=== PATIENT | male | born 1980 | race African-American/Black ===

== ENCOUNTER 2017-07-02 11:32 | Emergency (ER) | payer SELFPAY ==
[2017-07-02 13:44] LABS: RAPID STREP SCREEN REAGENT QC YELLOW (YELLOW)
--- NOTE | 2017-07-02 13:54 | ED Physician Documentation ---
PD HPI URI - Stated complaint Stated Complaint: SORE THOAT, WHEEZING, COUGH - Chief complaint Chief Complaint: Heent - History obtained from History obtained from: Patient - History of Present Illness Timing - onset: Other (36-year-old gentleman with very mild asthma presents with 1 day of coughing, nonproductive with mild wheezing, sore throat, runny nose, and sneezing. He has chills but no measured fevers. There is no shortness of breath.) Review of Systems Constitutional: reports: Chills, Fatigue. denies: Fever Nose: reports: Rhinorrhea / runny nose, Congestion. denies: Sinus pressure / pain Throat: reports: Sore throat Respiratory: reports: Dyspnea, Wheezing. denies: Cough GI: denies: Abdominal Pain PD PAST MEDICAL HISTORY - Present Medications Home Medications: Ambulatory Orders Medication Instructions Recorded Confirmed Albuterol Sulfate [Proventil Hfa 1 - 2 puffs IH Q4H PRN #1 07/02/17 Inhaler] hfa.aer.ad Guaifenesin/Pseudoephedrne HCl 1 each PO BID PRN #20 tab.er.12h 07/02/17 [Mucinex D ER 600-60 mg Tablet] Ibuprofen [Motrin] 800 mg PO Q8H PRN #30 tablet 07/02/17 guaiFENesin/CODEINE [Robitussin AC] 5 - 10 ml PO Q6H PRN #120 ml 07/02/17 predniSONE [Deltasone] 60 mg PO DAILY 5 Days 07/02/17 - Allergies Allergies/Adverse Reactions: Allergies Allergy/AdvReac Type Severity Reaction Status Date / Time No Known Drug Allergies Allergy Verified 07/02/17 11:55 PD ED PE NORMAL - Vitals Vital signs reviewed: Yes - General General: Alert and oriented X 3, No acute distress - HEENT HEENT: PERRL, EOMI, Ears normal, Pharynx benign - Neck Neck: Supple, no meningeal sign, No bony TTP, No adenopathy - Cardiac Cardiac: RRR, No murmur - Respiratory Respiratory: No respiratory distress, Other (Mild diffuse wheezes with good air movement and no focal findings) - Abdomen Abdomen: Non tender - Neuro Neuro: Alert and oriented X 3, Normal speech - Psych Psych: Normal mood, Normal affect Results - Vitals Vitals: Vital Signs - 24 hr 07/02/17 07/02/17 11:51 14:01 Temperature 36.9 C 37.3 C Heart Rate 73 76 Respiratory 18 20 Rate Blood Pressure 124/72 144/90 H O2 Saturation 98 99 Oxygen O2 Source Room air - Labs Labs: Laboratory Tests 07/02/17 07/02/17 12:25 12:25 Influenza A (Rapid) Negative Influenza B (Rapid) Negative Influenza Types A,B Ag - Group A Strep Rapid Negative PD MEDICAL DECISION MAKING - ED course ED course: 36-year-old gentleman with viral URI symptoms, no evidence of bacterial infection. He will be treated with albuterol, prednisone, codeine for the cough , and Mucinex. Strep test negative. Departure - Departure Disposition: 01 Home, Self Care Clinical Impression: Viral URI with cough Condition: Good Record reviewed to determine appropriate education?: Yes Instructions: ED URI Viral W Wheezing Prescriptions: predniSONE [Deltasone] 60 mg PO DAILY 5 Days Ibuprofen [Motrin] 800 mg PO Q8H PRN #30 tablet PRN Reason: PAIN &/OR FEVER Guaifenesin/Pseudoephedrne HCl [Mucinex D ER 600-60 mg Tablet] 1 each PO BID PRN #20 tab.er.12h PRN Reason: congestion Albuterol Sulfate [Proventil Hfa Inhaler] 1 - 2 puffs IH Q4H PRN #1 hfa.aer.ad PRN Reason: Cough guaiFENesin/CODEINE [Robitussin AC] 5 - 10 ml PO Q6H PRN #120 ml PRN Reason: Cough Comments: Call your doctor to arrange a follow-up appointment, make the next available appointment. In the interim, return anytime if worse or if new symptoms develop. Forms: Activity restrictions
[2017-07-02 14:02] VITALS: BP 144/90
== END 2017-07-02 14:34 | disposition home or self-care (01) ==
LOC: ED 11:32
DX: J06.9 Acute upper respiratory infection, unspecified (principal); B34.9 Viral infection, unspecified; R05 Cough
CPT/HCPCS: 87070; 87275; 87276; 87430; 99283

== ENCOUNTER 2017-11-17 12:37 | Outpatient (CLI) | payer MEDICAID | END 2017-11-17 12:38 | disposition critical access hospital (66) | LOC: EMS 12:37 | PROVIDERS: ATTEND Surgery | DX: R10.9 Unspecified abdominal pain (principal); R11.2 Nausea with vomiting, unspecified; R19.7 Diarrhea, unspecified | CPT/HCPCS: A0425; A0427 ==

== ENCOUNTER 2017-11-17 13:21 | Emergency (ER) | payer MEDICAID ==
[2017-11-17] MEDS ORDERED: SODIUM CHLORIDE 0.9% 1,000 ML IV ONE ×2 (13:44→14:19)
[2017-11-17] MEDS ORDERED: ONDANSETRON 4 MG/2 ML VIAL IVP STA (13:44)
[2017-11-17] MEDS ORDERED: MORPHINE 2 MG/ML CARPUJECT IVP STA (14:20)
--- NOTE | 2017-11-17 14:21 | ED Physician Documentation ---
PD HPI ABD PAIN - Stated complaint Stated Complaint: N/V/D - Chief complaint Chief Complaint: Abd Pain - History obtained from History obtained from: Patient, Friend - History of Present Illness Timing - onset: Other (Sick since early this morning with vomiting and diarrhea , the vomit has been at times blood-tinged, no other blood from the bottom end. There is no associated fevers, chills, aches, runny nose. He does have abdominal cramping. No sick contacts or recent travel.) Review of Systems Ten Systems: 10 systems reviewed and negative Constitutional: denies: Fever, Chills Throat: denies: Sore throat Cardiac: denies: Chest pain / pressure, Palpitations Respiratory: denies: Dyspnea, Cough GI: reports: Abdominal Pain, Nausea, Vomiting, Diarrhea : denies: Dysuria, Frequency PD PAST MEDICAL HISTORY - Past Medical History Past Medical History: No Cardiovascular: None Respiratory: Asthma Neuro: None Endocrine/Autoimmune: None GI: None : None HEENT: None Psych: None Musculoskeletal: None Derm: None - Past Surgical History Past Surgical History: No - Present Medications Home Medications: Ambulatory Orders Medication Instructions Recorded Confirmed Dicyclomine HCl 20 mg PO QID PRN #20 tablet 11/17/17 Loperamide [Imodium] 2 mg PO QID PRN #10 capsule 11/17/17 Ondansetron HCl [Zofran] 4 mg PO Q6H PRN #10 tablet 11/17/17 - Allergies Allergies/Adverse Reactions: Allergies Allergy/AdvReac Type Severity Reaction Status Date / Time No Known Drug Allergies Allergy Verified 07/02/17 11:55 - Social History Does the pt smoke?: Yes Smoking Status: Current some day smoker Does the pt drink ETOH?: Yes Does the pt have substance abuse?: No - Family History Family history: reports: Non contributory - Immunizations Immunizations are current?: Yes PD ED PE NORMAL - Vitals Vital signs reviewed: Yes - General General: Alert and oriented X 3, No acute distress - HEENT HEENT: PERRL, EOMI - Neck Neck: Supple, no meningeal sign, No bony TTP - Cardiac Cardiac: RRR, No murmur - Respiratory Respiratory: No respiratory distress, Clear bilaterally - Abdomen Abdomen: Other (Focal tenderness in the right lower quadrant with hyperactive bowel tones. No surgical signs.) - Back Back: No CVA TTP, No spinal TTP - Derm Derm: Normal color, Warm and dry - Extremities Extremities: No edema, No calf tenderness / cord - Neuro Neuro: Alert and oriented X 3, Normal speech - Psych Psych: Normal mood, Normal affect Results - Vitals Vitals: Vital Signs - 24 hr 11/17/17 11/17/17 11/17/17 13:27 14:50 15:44 Temperature 36.5 C 37.4 C Heart Rate 67 68 67 Respiratory 18 16 18 Rate Blood Pressure 128/74 117/68 132/61 H O2 Saturation 100 100 100 Oxygen O2 Source Room air - Labs Labs: Laboratory Tests 11/17/17 11/17/17 14:31 14:31 WBC 13.9 H RBC 4.32 L Hgb 12.6 L Hct 38.1 L MCV 88.2 MCH 29.2 MCHC 33.1 RDW 12.2 Plt Count 305 MPV 7.4 Neut # 13.0 H Lymph # 0.2 L [place] # 0.4 Eos # 0.0 Baso # 0.2 H Absolute Nucleated RBC 0.00 Nucleated RBC % 0.0 Sodium 136 Potassium 4.0 Chloride 107 Carbon Dioxide 23 Anion Gap 6.0 BUN 19 Creatinine 1.2 Estimated GFR (MDRD) 82 L Glucose 110 H Calcium 8.5 Total Bilirubin 0.9 AST 26 ALT 28 Alkaline Phosphatase 32 L Total Protein 7.5 Albumin 4.0 Globulin 3.5 Albumin/Globulin Ratio 1.1 Lipase 38 - Rads (name of study) CT A/P Radiology: EMP read contemporaneously (NAD, nl appendix) PD MEDICAL DECISION MAKING - ED course ED course: He presents with symptoms that are most consistent with gastroenteritis, however he is tender he does have white counts and this was followed by CT which was negative. Feeling much better after meds here. The patient and family were counseled as to the diagnosis and need for follow- up. I counseled the patient with regard to signs and symptoms that would necessitate an urgent reevaluation in the emergency department. They understand they are welcome to return at any time if worse or if not improving as expected. This document was made in part using voice recognition software. While efforts are made to proofread this documents, sound alike and grammatical errors may occur. Departure - Departure Disposition: 01 Home, Self Care Clinical Impression: Gastroenteritis Abdominal pain Qualifiers: Abdominal location: right lower quadrant Qualified Code(s): R10.31 - Right lower quadrant pain Condition: Good Record reviewed to determine appropriate education?: Yes Instructions: ED Gastroenteritis Viral Prescriptions: Dicyclomine HCl 20 mg PO QID PRN #20 tablet PRN Reason: Abdominal Cramps Loperamide [Imodium] 2 mg PO QID PRN #10 capsule PRN Reason: Diarrhea Ondansetron HCl [Zofran] 4 mg PO Q6H PRN #10 tablet PRN Reason: Nausea / Vomiting Comments: Return for reevaluation in 24 hours if not better, anytime if worse. Your blood pressure was elevated today on check into the emergency department. This does not mean that you have hypertension, it is a common phenomenon to come to the emergency department and have elevated blood pressure. I recommend that you see your primary care physician within the week to have it rechecked when you are feeling better.
[2017-11-17] MEDS ORDERED: IOPAMIDOL-300 100 ML VIAL ONE (14:39)
[2017-11-17 14:51] LABS: ALBUMIN/GLOBULIN RATIO 1.1 (1.0-2.2); BASOPHILS # (AUTO) 0.2 10^3/uL (0.0-0.1); BASOPHILS % (AUTO) 1.3 %; BILIRUBIN,TOTAL 0.9 mg/dL (0.2-1.0); CALCIUM 8.5 mg/dL (8.5-10.3); CREATININE 1.2 mg/dL (0.6-1.2); EOSINOPHILS % (AUTO) 0.1 %; HGB - HEMOGLOBIN 12.6 g/dL (14.0-18.0); LYMPHOCYTES # (AUTO) 0.2 10^3/uL (1.5-3.5); LYMPHOCYTES % (AUTO) 1.7 %; MEAN CORPUSCULAR HEMOGLOBIN 29.2 pg (27.0-31.0); MEAN CORPUSCULAR HGB CONC 33.1 g/dL (32.0-36.0); MEAN CORPUSCULAR VOLUME 88.2 fL (80.0-94.0); MEAN PLATELET VOLUME 7.4 fL (7.4-11.4); MONOCYTES # (AUTO) 0.4 10^3/uL (0.0-1.0); MONOCYTES % (AUTO) 3.1 %; NEUTROPHILS % (AUTO) 93.8 %; PLT - PLATELET COUNT 305 10^3/uL (130-450); RED BLOOD COUNT 4.32 10^6/uL (4.70-6.10); RED CELL DISTRIBUTION WIDTH 12.2 % (12.0-15.0); TOTAL PROTEIN 7.5 g/dL (6.7-8.2); WHITE BLOOD COUNT 13.9 x10^3/uL (4.8-10.8)
[2017-11-17] MEDS ORDERED: IOPAMIDOL-300 100 ML VIAL IVP ONE (15:31)
[2017-11-17 15:45] VITALS: BP 132/61
--- NOTE | 2017-11-17 15:46 | CT Preliminary Report ---
Exam: CT ABDOMEN/PELVIS W/ IMPRESSION: 1. Abnormal inferior half thoracic spine consistent with remote Scheuermann's disease, excessive athl etic participation, remote trauma or osteoporosis. 2. Otherwise, unremarkable exam. Normal appendix. No radiographic explanation for this gentleman's pr esenting symptoms. [facility] SITE ID: [id number]
--- NOTE | 2017-11-17 15:53 | CT Report ---
EXAM: CT ABDOMEN AND PELVIS EXAM DATE: 11/17/2017 03:31 PM. CLINICAL HISTORY: Right lower quadrant pain since last night. No prior abdominal surgery. COMPARISONS: None. TECHNIQUE: Routine helical CT imaging was performed through the abdomen and pelvis. IV contrast: ISOV UE 300 100 mL. Enteric contrast: No. Reconstructions: Coronal and sagittal. In accordance with CT protocol optimization, one or more of the following dose reduction techniques w ere utilized for this exam: automated exposure control, adjustment of mA and/or KV based on patient s ize, or use of iterative reconstructive technique. FINDINGS: Lung Bases: Unremarkable. Liver: Normal. No masses. Gallbladder/Bile Ducts: Unremarkable. Spleen: Normal. Pancreas: Normal. Adrenal Glands: Normal. Kidneys: Normal. No masses or hydronephrosis. Peritoneal Cavity/Bowel: Normal. No free fluid, free air or adenopathy. No masses or acute inflammato ry process. The appendix is well visualized and normal. Pelvic Organs: Normal. The bladder and visualized pelvic organs are within normal limits. Vasculature: No aneurysms or other significant abnormality. Bones: Old mild wedging T7 to T12 with irregular endplates and mild degenerative disk disease. Other: None. IMPRESSION: 1. Abnormal inferior half thoracic spine consistent with remote Scheuermann's disease, excessive athl etic participation, remote trauma or osteoporosis. 2. Otherwise, unremarkable exam. Normal appendix. No radiographic explanation for this gentleman's pr esenting symptoms. [facility] Referring Provider Line: [phone] SITE ID: [id number]
== END 2017-11-17 16:30 | disposition home or self-care (01) ==
LOC: ED 13:21
DX: K52.9 Noninfective gastroenteritis and colitis, unspecified (principal); R10.31 Right lower quadrant pain; R03.0 Elevated blood-pressure reading, without diagnosis of hypertension; F17.200 Nicotine dependence, unspecified, uncomplicated
CPT/HCPCS: 36415; 74177; 80053; 83690; 85025; 96361; 96374; 96375; 99284; Q9967

== ENCOUNTER 2018-06-09 11:05 | Emergency (ER) | payer MEDICAID ==
[2018-06-09 11:24] VITALS: BP 120/74
--- NOTE | 2018-06-09 12:15 | XRAY Report ---
Procedure Date: 06/09/2018 Accession Number: [id number] / [id number] Procedure: XR - Toe(s) RT CPT Code: FULL RESULT: EXAM: RIGHT FOURTH AND FIFTH TOE RADIOGRAPHY EXAM DATE: 06/09/2018 12:03 PM. CLINICAL HISTORY: Injury to toe, pain swelling. COMPARISON: None. TECHNIQUE: 3 views. FINDINGS: Bones: No definite fracture or other bone lesion. Joints: Normal. No subluxations. Soft Tissues: Soft tissue swelling. IMPRESSION: Soft tissue swelling. [facility]
--- NOTE | 2018-06-09 13:07 | ED Physician Documentation ---
PD HPI LOWER EXT INJURY - Stated complaint Stated Complaint: RT FOOT PX - Chief complaint Chief Complaint: Ext Problem - History obtained from History obtained from: Patient - History of Present Illness PD HPI LOW EXT INJURY LOCATION: Right, Foot Type of injury: Other (stubbed 4th adn 5th toes playing softball a few days ago , pain increasing) Where injury occurred: [place] Timing - onset: How many days ago (several) Timing - details: Abrupt onset Pain level max: 7 Pain level now: 4 Improved by: Rest, Immobilization Worsened by: Moving, Palpating, Other (walking) Associated symptoms: Swelling. No: Weakness, Numbness, Tingling Similar symptoms before: Has not had sx before Recently seen: Not recently seen Review of Systems Neurologic: denies: Focal weakness, Numbness PD PAST MEDICAL HISTORY - Past Medical History Cardiovascular: None Respiratory: Asthma Endocrine/Autoimmune: None GI: None : None HEENT: None Psych: None Musculoskeletal: None Derm: None - Past Surgical History Past Surgical History: No - Present Medications Home Medications: Ambulatory Orders Medication Instructions Recorded Confirmed Dicyclomine HCl 20 mg PO QID PRN #20 tablet 11/17/17 Loperamide [Imodium] 2 mg PO QID PRN #10 capsule 11/17/17 Ondansetron HCl [Zofran] 4 mg PO Q6H PRN #10 tablet 11/17/17 Hydrocodone/Acetaminophen 1 - 2 each PO Q6H PRN #14 tablet 06/09/18 [Hydrocodon-Acetaminophen 5-325] - Allergies Allergies/Adverse Reactions: Allergies Allergy/AdvReac Type Severity Reaction Status Date / Time No Known Drug Allergies Allergy Verified 06/09/18 11:24 - Social History Does the pt smoke?: Yes Smoking Status: Current some day smoker Does the pt drink ETOH?: Yes Does the pt have substance abuse?: No - Immunizations Immunizations are current?: Yes PD ED PE NORMAL - Vitals Vital signs reviewed: Yes - General General: Alert and oriented X 3, No acute distress - HEENT HEENT: Moist mucous membranes - Derm Derm: Warm and dry - Extremities Extremities: Other (Tender to palpation at the base of the fourth and fifth toes on the right foot. Neurovascularly intact. No deformity. No overlying skin changes.) - Neuro Neuro: Alert and oriented X 3 - Psych Psych: Normal mood Results - Vitals Vitals: Vital Signs - 24 hr 06/09/18 11:20 Temperature 36.5 C Heart Rate 88 Respiratory 20 Rate Blood Pressure 120/74 O2 Saturation 100 Oxygen O2 Source Room air - Rads (name of study) Right foot x-ray Radiology: Prelim report reviewed, EMP read contemporaneously, See rad report ( No acute fractures) PD MEDICAL DECISION MAKING - ED course Complexity details: reviewed results, re-evaluated patient, considered differential, d/w patient ED course: Patient is a 37-year-old male who presents to the with a right foot injury. Injury is to the fourth and fifth toes. No acute findings on x-ray. Likely sprain. Placed in a postop shoe for comfort and will prescribe pain medication for home. Also given crutches. Patient counseled regarding signs and symptoms for which I believe and urgent re-evaluation would be necessary. Patient with good understanding of and agreement to plan and is comfortable going home at this time This document was made in part using voice recognition software. While efforts are made to proofread this document, sound alike and grammatical errors may occur. - Sepsis Event Vital Signs: Vital Signs - 24 hr 06/09/18 11:20 Temperature 36.5 C Heart Rate 88 Respiratory 20 Rate Blood Pressure 120/74 O2 Saturation 100 Oxygen O2 Source Room air Departure - Departure Disposition: 01 Home, Self Care Clinical Impression: Foot sprain Qualifiers: Encounter type: initial encounter Laterality: right Qualified Code(s): S93.601A - Unspecified sprain of right foot, initial encounter Condition: Good Instructions: ED Sprain Foot Follow-Up: Lisa Dai DPM [Provider Admit Priv/Credential] - Myke Perkins DPM [Physician No Access] - Jose Juan Musa DPM [Physician No Access] - your,doctor in 1 week [Other] Prescriptions: Hydrocodone/Acetaminophen [Hydrocodon-Acetaminophen 5-325] 1 - 2 each PO Q6H PRN #14 tablet PRN Reason: pain Comments: Return if you worsen. your xrays are normal today. Wear the post operative shoe for pain. You may bear weight as tolerated. Do not drink alcohol or drive while on narcotic pain medicine. Note that many narcotic pain relievers also contain tylenol/acetaminophen. Please ensure that your total dose of acetaminophen from all sources does not exceed 3 grams (3000mg) per day. You may constipated on this medication, take a stool softener such as "Colace" twice a day while you are on it. Also recommend a [id number]-evhfnni laxative such as senna or MiraLAX any day that you do not have a bowel movement. If you received narcotic pain medication in the emergency department, do not drive or operate machinery for the next 24 hours. Discharge Date/Time: 06/09/18 13:29
== END 2018-06-09 13:29 | disposition home or self-care (01) ==
LOC: ED 11:05
DX: S93.504A Unspecified sprain of right lesser toe(s), initial encounter (principal); F17.200 Nicotine dependence, unspecified, uncomplicated; X58.XXXA Exposure to other specified factors, initial encounter; Y93.64 Activity, baseball; Y92.830 Public park as the place of occurrence of the external cause
CPT/HCPCS: 73660; 99283

== ENCOUNTER 2018-06-16 08:41 | Emergency (ER) | payer MEDICAID ==
[2018-06-16 08:52] VITALS: BP 137/84
[2018-06-16] MEDS ORDERED: IBUPROFEN 400 MG TABLET PO STA (09:00)
[2018-06-16] MEDS ORDERED: oxyCODONE 5 MG TABLET PO STA (09:00)
[2018-06-16] MEDS ORDERED: TETANUS/DIPHTHERIA/PERTUSSIS 0.5 ML SYRINGE IM ONE (09:01)
[2018-06-16] MEDS ORDERED: cephALEXin 250 MG CAPSULE PO STA (09:01)
[2018-06-16] MEDS ORDERED: BACITRACIN OINT TOP STA (09:02)
--- NOTE | 2018-06-16 09:03 | ED Physician Documentation ---
History of Present Illness - Stated complaint Stated Complaint: RT FT BLEEDING AND SWELLING/PX - Chief complaint Chief Complaint: Ext Problem - Additonal information Additional information: hx from pt 37 male healthy hit right 4th and 5th toes on third base recently injuring them - seen in ED no fx on xray now has broken skin between toes, purulent drainage and surrounding erythema swelling and pain not diabetic hx cellulitis and it felt like this no hx MRSA Review of Systems Constitutional: denies: Fever Skin: reports: Rash Musculoskeletal: reports: Extremity pain Immunocompromised: denies: Immunocompromised PD PAST MEDICAL HISTORY - Past Medical History Cardiovascular: None Respiratory: Asthma Endocrine/Autoimmune: None GI: None : None HEENT: None Psych: None Musculoskeletal: None Derm: None - Past Surgical History Past Surgical History: No - Present Medications Home Medications: Ambulatory Orders Medication Instructions Recorded Confirmed Hydrocodone/Acetaminophen 1 - 2 each PO Q6H PRN #14 tablet 06/09/18 [Hydrocodon-Acetaminophen 5-325] Cephalexin [Keflex] 500 mg PO Q6H #28 capsule 06/16/18 Ibuprofen [Motrin] 400 mg PO Q6H PRN #30 tablet 06/16/18 Mupirocin Calcium [Bactroban] 1 applic TP BID #30 cream..g. 06/16/18 - Allergies Allergies/Adverse Reactions: Allergies Allergy/AdvReac Type Severity Reaction Status Date / Time No Known Drug Allergies Allergy Verified 06/16/18 08:52 - Social History Does the pt smoke?: Yes Smoking Status: Current some day smoker Does the pt drink ETOH?: Yes Does the pt have substance abuse?: No - Immunizations Immunizations are current?: Yes PD ED PE NORMAL - Vitals Vital signs reviewed: Yes - Cardiac Cardiac: RRR - Respiratory Respiratory: No respiratory distress, Clear bilaterally - Extremities Extremities: No deformity, Other (R foot, swelling erythema warmth TTP to 4th and fifth toes and dital lateral foot, no necrosis, no bullae, no crepitus, cracked skin with some purulent dc or debris between toes, no abscess, MSV intact) Results - Vitals Vitals: Vital Signs - 24 hr 06/16/18 08:48 Temperature 36.6 C Heart Rate 56 L Respiratory 16 Rate Blood Pressure 137/84 H O2 Saturation 99 Oxygen O2 Source Room air - Labs Labs: Laboratory Tests 06/16/18 09:08 POC Whole Bld Glucose 99 PD MEDICAL DECISION MAKING - Sepsis Event Vital Signs: Vital Signs - 24 hr 06/16/18 08:48 Temperature 36.6 C Heart Rate 56 L Respiratory 16 Rate Blood Pressure 137/84 H O2 Saturation 99 Oxygen O2 Source Room air Departure - Departure Disposition: 01 Home, Self Care Clinical Impression: Cellulitis Qualifiers: Site of cellulitis: extremity Site of cellulitis of extremity: lower extremity Laterality: right Qualified Code(s): L03.115 - Cellulitis of right lower limb Condition: Good Instructions: ED Infec Skin Cellulitis Follow-Up: [facility] [Provider Group] Lisa Dai DPM [Provider Admit Priv/Credential] - Prescriptions: Cephalexin [Keflex] 500 mg PO Q6H #28 capsule Ibuprofen [Motrin] 400 mg PO Q6H PRN #30 tablet PRN Reason: Pain Mupirocin Calcium [Bactroban] 1 applic TP BID #30 cream..g. Comments: Wash your foot and apply the antibiotic ointment between the toes twice a day Take the antibiotic as prescribed Motrin and tylenol for the pain Elevation to decrease the swelling Please come back and see me tomorrow for a wound check - any time after 7 AM Forms: Activity restrictions
== END 2018-06-16 10:14 | disposition home or self-care (01) ==
LOC: ED 08:41
DX: L03.115 Cellulitis of right lower limb (principal); F17.200 Nicotine dependence, unspecified, uncomplicated
CPT/HCPCS: 90471; 90715; 99283; A9270

== ENCOUNTER 2018-06-17 07:49 | Emergency (ER) | payer MEDICAID ==
[2018-06-17] MEDS ORDERED: ceFAZolin 1 GM VIAL IM STA (08:40)
[2018-06-17] MEDS ORDERED: LIDOCAINE 1%-EPI 1:100000 30 ML MDV SUBQ STA (08:40)
--- NOTE | 2018-06-17 08:44 | ED Physician Documentation ---
Addendum entered and electronically signed by Rama Lopez MD 07/05/18 07:32: right foot not left - please amend HPI, exam and dispo screen. Thanks Original Note: History of Present Illness - Stated complaint Stated Complaint: R FOOT FOLLOW UP - Chief complaint Chief Complaint: Ext Problem - Additonal information Additional information: hx from pt seen by me yesterday foot infection 2/2 skin tear between 4th and 5th toes L foot after collided with third base started on keflex returned today as requested for wound check not much better still very painful still swollen still draining taking ab as directed no hx MRSA Review of Systems Constitutional: denies: Fever Musculoskeletal: reports: Extremity pain PD PAST MEDICAL HISTORY - Past Medical History Cardiovascular: None Respiratory: Asthma Neuro: None Endocrine/Autoimmune: None GI: None : None HEENT: None Psych: None Musculoskeletal: None Derm: None - Past Surgical History Past Surgical History: No - Present Medications Home Medications: Ambulatory Orders Medication Instructions Recorded Confirmed Hydrocodone/Acetaminophen 1 - 2 each PO Q6H PRN #14 tablet 06/09/18 [Hydrocodon-Acetaminophen 5-325] Cephalexin [Keflex] 500 mg PO Q6H #28 capsule 06/16/18 Ibuprofen [Motrin] 400 mg PO Q6H PRN #30 tablet 06/16/18 Mupirocin Calcium [Bactroban] 1 applic TP BID #30 cream..g. 06/16/18 Sulfamethox/Trimeth 800/160 1 each PO BID #14 tablet 06/17/18 [Bactrim Ds 800/160] - Allergies Allergies/Adverse Reactions: Allergies Allergy/AdvReac Type Severity Reaction Status Date / Time No Known Drug Allergies Allergy Verified 06/16/18 08:52 - Social History Does the pt smoke?: Yes Smoking Status: Current every day smoker Does the pt drink ETOH?: Yes Does the pt have substance abuse?: No Substance Use and Type: Marijuana - Immunizations Immunizations are current?: Yes - POLST Patient has POLST: No PD ED PE NORMAL - Vitals Vital signs reviewed: Yes - Extremities Extremities: Other (L foot swelling and flutcuance to rtop of foot just prox to 5th 5th webspace, purlent dx from between toes, very tender, no bullae crepitus, necrosis) Results - Vitals Vitals: Vital Signs - 24 hr 06/17/18 07:53 Temperature 35.7 C L Heart Rate 60 Respiratory 16 Rate Blood Pressure 124/83 H O2 Saturation 98 Oxygen O2 Source Room air Procedures - Abscess I&D (location) R foot Preparation: Alcohol, Lidocaine 1%, With epi Incision: Incised with scalpel, Purulent drainage, Loculations broken, Culture obtained. No: Packed (unable due to location) Other: Pt tolerated well, Dressing applied, Antibiotic prescribed PD MEDICAL DECISION MAKING - ED course ED course: will I&D add bactrim ancef IM in ED pt goiung to [place] for an important foot ball game has access to medical care there if needed - Sepsis Event Vital Signs: Vital Signs - 24 hr 06/17/18 07:53 Temperature 35.7 C L Heart Rate 60 Respiratory 16 Rate Blood Pressure 124/83 H O2 Saturation 98 Oxygen O2 Source Room air Departure - Departure Disposition: 01 Home, Self Care Clinical Impression: Abscess Cellulitis Qualifiers: Site of cellulitis: extremity Site of cellulitis of extremity: lower extremity Laterality: left Qualified Code(s): L03.116 - Cellulitis of left lower limb Condition: Good Instructions: ED Infec Skin Cellulitis, ED Abscess IandD Prescriptions: Sulfamethox/Trimeth 800/160 [Bactrim Ds 800/160] 1 each PO BID #14 tablet Comments: Now that the pus has been drained, the infection should clear up more quickly Add the bactrim antibiotic in addition to the keflex antibiotic Take a probiotic to prevent diarrhea caused by antibiotics Keep wound clean Please follow up with your PMD Friday when you get home from the football game If worse over the weekend while travelling, go to a local urgent care or ER
[2018-06-17 10:02] VITALS: BP 148/95
== END 2018-06-17 10:10 | disposition home or self-care (01) ==
LOC: ED 07:49
DX: F17.200 Nicotine dependence, unspecified, uncomplicated (principal); L02.611 Cutaneous abscess of right foot; L03.116 Cellulitis of left lower limb
CPT/HCPCS: 10060; 87070; 87077; 87181; 87205; 96372; 99283

== ENCOUNTER 2020-02-02 09:37 | Emergency (ER) | payer SELFPAY ==
[2020-02-02 09:45] VITALS: BP 167/79
--- NOTE | 2020-02-02 09:52 | ED Physician Documentation ---
PD HPI HEENT - Stated complaint Stated Complaint: LT EAR PX - Chief complaint Chief Complaint: Heent - History obtained from History obtained from: Patient (He has had about a months worth of left ear fullness and mild pain, feels some popping when he chews or swallows.) Review of Systems Constitutional: denies: Fever, Chills Ears: denies: Drainage/discharge Nose: denies: Rhinorrhea / runny nose Throat: denies: Sore throat PD PAST MEDICAL HISTORY - Past Medical History Cardiovascular: None Respiratory: Asthma Neuro: None Endocrine/Autoimmune: None GI: None : None HEENT: None Psych: None Musculoskeletal: None Derm: Eczema - Past Surgical History Past Surgical History: No - Present Medications Home Medications: Ambulatory Orders Medication Instructions Recorded Confirmed Hydrocodone/Acetaminophen 1 - 2 each PO Q6H PRN #14 tablet 06/09/18 [Hydrocodon-Acetaminophen 5-325] Cephalexin [Keflex] 500 mg PO Q6H #28 capsule 06/16/18 Ibuprofen [Motrin] 400 mg PO Q6H PRN #30 tablet 06/16/18 Mupirocin Calcium [Bactroban] 1 applic TP BID #30 cream..g. 06/16/18 Sulfamethox/Trimeth 800/160 1 each PO BID #14 tablet 06/17/18 [Bactrim Ds 800/160] Amoxicillin 500 mg PO TID #30 capsule 02/02/20 Guaifenesin/Pseudoephedrne HCl 1 each PO BID PRN #20 tab.er.12h 02/02/20 [Mucinex D ER 600-60 mg Tablet] - Allergies Allergies/Adverse Reactions: Allergies Allergy/AdvReac Type Severity Reaction Status Date / Time No Known Drug Allergies Allergy Verified 02/02/20 09:41 - Social History Does the pt smoke?: Yes Smoking Status: Current some day smoker Does the pt drink ETOH?: Yes Does the pt have substance abuse?: Yes Substance Use and Type: Marijuana - Immunizations Immunizations are current?: Yes - POLST Patient has POLST: No PD ED PE NORMAL - Vitals Vital signs reviewed: Yes - General General: Alert and oriented X 3, No acute distress - HEENT HEENT: Other (He has severe left otitis media, he also has serous otitis on the right.) - Neuro Neuro: Alert and oriented X 3, Normal speech Results - Vitals Vitals: Vital Signs - 24 hr 02/02/20 09:41 Temperature 36.2 C L Heart Rate 69 Respiratory 18 Rate Blood Pressure 167/79 H O2 Saturation 99 Oxygen O2 Source Room air Departure - Departure Disposition: 01 Home, Self Care Clinical Impression: LOM (left otitis media) Qualifiers: Otitis media type: suppurative Chronicity: acute Recurrence: non-recurrent Spontaneous tympanic membrane rupture: without spontaneous rupture Qualified Code(s): H66.002 - Acute suppurative otitis media without spontaneous rupture of ear drum, left ear Condition: Good Record reviewed to determine appropriate education?: Yes Instructions: ED Otitis Media Acute Adult Prescriptions: Amoxicillin 500 mg PO TID #30 capsule Guaifenesin/Pseudoephedrne HCl [Mucinex D ER 600-60 mg Tablet] 1 each PO BID PRN #20 tab.er.12h PRN Reason: congestion Comments: Plenty of fluids, return for new or worsening symptoms. Follow-up with your doctor in a week for recheck.
== END 2020-02-02 09:56 | disposition home or self-care (01) ==
LOC: ED 09:37
DX: H66.002 Acute suppurative otitis media without spontaneous rupture of ear drum, left ear (principal); F17.200 Nicotine dependence, unspecified, uncomplicated
CPT/HCPCS: 99282; 99283

== ENCOUNTER 2020-03-12 10:12 | Emergency (ER) | payer SELFPAY ==
--- NOTE | 2020-03-12 11:24 | ED Physician Documentation ---
PD HPI LOWER EXT INJURY - Stated complaint Stated Complaint: LT KNEE PX - Chief complaint Chief Complaint: Ext Problem - History obtained from History obtained from: Patient - History of Present Illness PD HPI LOW EXT INJURY LOCATION: Left, Knee Type of injury: No: Fall, Twist Timing - onset: How many months ago (2) Timing - duration: Months (2) Timing - details: Gradual onset, Still present (increased the past 1-2 weeks, with hurting more consistently and giving out more often. Has some effusion/sw elling consistent the past week.), Waxing and waning Worsened by: Moving, Other (walking, and most notably squatting.) Associated symptoms: Swelling, Other (giving out nad popping, no locking). No: Weakness, Numbness, Discolored Similar symptoms before: Has not had sx before Review of Systems Constitutional: denies: Fever, Chills Skin: denies: Rash, Lesions Musculoskeletal: reports: Joint pain, Joint swelling (left knee). denies: Back pain Neurologic: denies: Focal weakness, Numbness PD PAST MEDICAL HISTORY - Past Medical History Cardiovascular: None Respiratory: Asthma Neuro: None Endocrine/Autoimmune: None GI: None : None HEENT: None Psych: None Musculoskeletal: None Derm: Eczema - Past Surgical History Past Surgical History: No - Present Medications Home Medications: Ambulatory Orders Medication Instructions Recorded Confirmed Hydrocodone/Acetaminophen 1 - 2 each PO Q6H PRN #14 tablet 06/09/18 [Hydrocodon-Acetaminophen 5-325] Cephalexin [Keflex] 500 mg PO Q6H #28 capsule 06/16/18 Ibuprofen [Motrin] 400 mg PO Q6H PRN #30 tablet 06/16/18 Mupirocin Calcium [Bactroban] 1 applic TP BID #30 cream..g. 06/16/18 Sulfamethox/Trimeth 800/160 1 each PO BID #14 tablet 06/17/18 [Bactrim Ds 800/160] Amoxicillin 500 mg PO TID #30 capsule 02/02/20 Guaifenesin/Pseudoephedrne HCl 1 each PO BID PRN #20 tab.er.12h 02/02/20 [Mucinex D ER 600-60 mg Tablet] Hydrocodone/Acetaminophen [[place] 1 each PO Q6H PRN #20 tablet 03/12/20 5-325 Tablet] Naproxen 500 mg PO BID #30 tablet 05/24/20 - Allergies Allergies/Adverse Reactions: Allergies Allergy/AdvReac Type Severity Reaction Status Date / Time No Known Drug Allergies Allergy Verified 03/12/20 10:21 - Social History Does the pt smoke?: Yes Smoking Status: Current some day smoker Does the pt drink ETOH?: Yes Does the pt have substance abuse?: Yes - Immunizations Immunizations are current?: Yes - POLST Patient has POLST: No PD ED PE NORMAL - Vitals Vital signs reviewed: Yes - General General: Alert and oriented X 3, No acute distress, Well developed/nourished - Derm Derm: Normal color, Warm and dry, No rash - Extremities Extremities: Other (left knee with mild effusion, no patellar tenderness. Tender popliteal and medial aspect. Negative cruciate testing. Pain with impacted rotation c/w meniscal. ) - Neuro Neuro: Alert and oriented X 3, No motor deficit, No sensory deficit, Normal speech Results - Vitals Vitals: Oxygen O2 Source Room air - Rads (name of study) left knee Radiology: Prelim report reviewed (no fractures), See rad report PD MEDICAL DECISION MAKING - ED course Complexity details: considered differential (symptoms c/w meniscal tear. ), d/w patient Departure - Departure Disposition: 01 Home, Self Care Clinical Impression: Left knee pain Qualifiers: Chronicity: acute Qualified Code(s): M25.562 - Pain in left knee Acute meniscal injury of left knee Qualifiers: Encounter type: initial encounter Qualified Code(s): S83.8X2A - Sprain of other specified parts of left knee, initial encounter Condition: Stable Record reviewed to determine appropriate education?: Yes Instructions: ED Meniscal Injury Knee Poss Follow-Up: Mic Gil MD [Provider Admit Priv/Credential] - Prescriptions: Hydrocodone/Acetaminophen [[place] 5-325 Tablet] 1 each PO Q6H PRN #20 tablet PRN Reason: Pain Naproxen 500 mg PO BID #30 tablet Comments: Use the knee brace when up and around to support the ligaments a bit and limit the range of motion. Use anti-inflammatory naproxen twice daily for the next week or 2 with food. Add Tylenol or hydrocodone if needed for pains at times. It sounds likely that you have a torn meniscus (cartilage). Follow-up with orthopedics at their nearest available appointment which will likely be this coming week. Call Friday for an appointment. The will decide on any further imaging if needed or further assessment. Discharge Date/Time: 03/12/20 12:49
--- NOTE | 2020-03-12 11:41 | XRAY Report ---
Reason: pain in knee x 2 months Procedure Date: 03/12/2020 Accession Number: [id number] / [id number] Procedure: XR - Knee 3 View LT CPT Code: Final Report FULL RESULT: EXAM: LEFT KNEE RADIOGRAPHY EXAM DATE: 03/12/2020 10:51 AM. CLINICAL HISTORY: Left knee pain x2 months. COMPARISON: None. TECHNIQUE: 3 views. FINDINGS: Bones: No fracture or bone lesion. Joints: Normal alignment. Joint spaces are maintained. No significant arthritic change. No effusion. Soft Tissues: Unremarkable. IMPRESSION: Normal knee radiography. RADIA
[2020-03-12] MEDS ORDERED: IBUPROFEN 800 MG TABLET PO STA (12:19)
[2020-03-12 12:42] VITALS: BP 129/93
== END 2020-03-12 12:49 | disposition home or self-care (01) ==
LOC: ED 10:12
DX: S83.8X2A Sprain of other specified parts of left knee, initial encounter (principal); X58.XXXA Exposure to other specified factors, initial encounter; F17.200 Nicotine dependence, unspecified, uncomplicated
CPT/HCPCS: 73562; 99283; A9270

== ENCOUNTER 2020-05-31 08:47 | Emergency (ER) | payer MEDICAID ==
--- NOTE | 2020-05-31 09:19 | ED Physician Documentation ---
PD HPI LOWER EXT INJURY - Stated complaint Stated Complaint: R LEG PX - Chief complaint Chief Complaint: Ext Problem - History obtained from History obtained from: Patient - History of Present Illness PD HPI LOW EXT INJURY LOCATION: Right, Thigh (back of leg behind knee initially, worse with stretching and squats. with pain up back of thigh the past couple days.) Type of injury: Other (he does auto detailing for work, so lot of squatting and bending. Also does work out exercise. Not aware of abrupt injury.). No: Fall, Twist Timing - onset: How many days ago (several) Timing - duration: Days Timing - details: Gradual onset, Still present (worse today) Worsened by: Moving (squatting and standing back up, and also bending over feels pull of muscle back of thigh.). No: Palpating Associated symptoms: No: Weakness, Numbness, Swelling Contributing factors: Other (FH of DVT and he is concerned with the pain up into thigh and behind knee.) Similar symptoms before: Has not had sx before Recently seen: Not recently seen Review of Systems Constitutional: denies: Fever, Chills Nose: denies: Rhinorrhea / runny nose, Congestion Throat: denies: Sore throat Respiratory: denies: Cough GI: denies: Abdominal Pain, Vomiting, Diarrhea Skin: denies: Rash Musculoskeletal: denies: Back pain Neurologic: denies: Focal weakness, Numbness PD PAST MEDICAL HISTORY - Past Medical History Cardiovascular: None Respiratory: Asthma Neuro: None Endocrine/Autoimmune: None GI: None : None HEENT: None Psych: None Musculoskeletal: None Derm: Eczema - Past Surgical History Past Surgical History: No - Present Medications Home Medications: Ambulatory Orders Medication Instructions Recorded Confirmed Hydrocodone/Acetaminophen 1 - 2 each PO Q6H PRN #14 tablet 06/09/18 [Hydrocodon-Acetaminophen 5-325] Cephalexin [Keflex] 500 mg PO Q6H #28 capsule 06/16/18 Ibuprofen [Motrin] 400 mg PO Q6H PRN #30 tablet 06/16/18 Mupirocin Calcium [Bactroban] 1 applic TP BID #30 cream..g. 06/16/18 Sulfamethox/Trimeth 800/160 1 each PO BID #14 tablet 06/17/18 [Bactrim Ds 800/160] Amoxicillin 500 mg PO TID #30 capsule 02/02/20 Guaifenesin/Pseudoephedrne HCl 1 each PO BID PRN #20 tab.er.12h 02/02/20 [Mucinex D ER 600-60 mg Tablet] Hydrocodone/Acetaminophen [[place] 1 each PO Q6H PRN #20 tablet 03/12/20 5-325 Tablet] Naproxen 500 mg PO BID #30 tablet 03/12/20 Ibuprofen [Motrin] 600 mg PO TID PRN #25 tab 05/31/20 methocarbamoL [Robaxin] 500 mg PO Q6H PRN #25 tablet 05/31/20 - Allergies Allergies/Adverse Reactions: Allergies Allergy/AdvReac Type Severity Reaction Status Date / Time No Known Drug Allergies Allergy Verified 05/31/20 09:07 - Living Situation Living Arrangement: reports: At home - Social History Does the pt smoke?: Yes Smoking Status: Current every day smoker Does the pt drink ETOH?: Yes Does the pt have substance abuse?: Yes - Family History Family history: reports: Venous thromboembolism - Immunizations Immunizations are current?: Yes - POLST Patient has POLST: No PD ED PE NORMAL - Vitals Vital signs reviewed: Yes - General General: Alert and oriented X 3, No acute distress, Well developed/nourished - Abdomen Abdomen: Soft, Non tender - Back Back: No CVA TTP, No spinal TTP - Derm Derm: Normal color, Warm and dry - Extremities Extremities: Other (medial hamstring right leg with some tenderness to palpation and squeezing. No redness, rash. ) - Neuro Neuro: Alert and oriented X 3, No motor deficit, No sensory deficit Results - Vitals Vitals: Vital Signs - 24 hr 05/31/20 05/31/20 09:04 11:07 Temperature 36.5 C Heart Rate 83 60 Respiratory 18 16 Rate Blood Pressure 137/80 H 139/87 H O2 Saturation 98 98 Oxygen O2 Source Room air - Rads (name of study) duplex U/S right leg Radiology: Prelim report reviewed (no DVT), See rad report Departure - Departure Disposition: 01 Home, Self Care Clinical Impression: Right thigh pain, Hamstring tendonitis Condition: Stable Record reviewed to determine appropriate education?: Yes Instructions: ED Strain Muscle Ext Follow-Up: [facility] [Provider Group] Prescriptions: Ibuprofen [Motrin] 600 mg PO TID PRN #25 tab PRN Reason: Pain methocarbamoL [Robaxin] 500 mg PO Q6H PRN #25 tablet PRN Reason: Spasms Comments: Avoid prolonged standing, repetitive bending or squatting for 3 days due to acute muscle strain of the hamstring. Ibuprofen 3 times a day for the next week. Robaxin muscle relaxant for stiffness and tightness of the muscle as well. Add Tylenol if needed for pain. Recheck if not improved well over the next 3 to 5 days. Forms: Activity restrictions Discharge Date/Time: 05/31/20 11:16
[2020-05-31] MEDS ORDERED: methocarbamoL 500 MG TABLET PO STA (09:34)
[2020-05-31] MEDS ORDERED: IBUPROFEN 800 MG TABLET PO STA (09:34)
[2020-05-31 11:11] VITALS: BP 139/87
--- NOTE | 2020-05-31 11:33 | Ultrasound Report ---
PROCEDURE: Duplex Ext Veins Right INDICATIONS: right popliteal and thigh pain for week TECHNIQUE: Real-time imaging, as well as color and pulse Doppler interrogation, were performed of the lower extr emity deep veins from the inguinal ligament to the popliteal fossa. COMPARISON: None. FINDINGS: The deep veins are normally compressible, and free of intraluminal thrombus. Color and pu lse Doppler demonstrate normal phasic intraluminal flow. There is normal augmentation response to di stal compression maneuver. IMPRESSION: No DVT found. Reviewed by: Yves Valencia MD on 05/31/2020 11:32 AM PDT Approved by: Yves Valencia MD on 05/31/2020 11:32 AM PDT Station ID: [id number]
== END 2020-05-31 11:16 | disposition home or self-care (01) ==
LOC: ED 08:47
DX: M76.891 Other specified enthesopathies of right lower limb, excluding foot (principal); F17.200 Nicotine dependence, unspecified, uncomplicated
CPT/HCPCS: 93971; 99283; 99284; A9270

== ENCOUNTER 2020-12-11 10:16 | Emergency (ER) | payer MEDICAID ==
--- NOTE | 2020-12-11 10:44 | ED Physician Documentation ---
PD HPI URI - Stated complaint Stated Complaint: WHEEZING/THROAT PX - Chief complaint Chief Complaint: Resp - History obtained from History obtained from: Patient - History of Present Illness Timing - onset: How many months ago (1) Timing duration: Months (1) Timing details: Gradual onset, Still present (has had wheezing and cough for a month. Similar to prior asthma, but not had problems since teens/twenties. No current inhaler use. No change in home nor work environment except that his mother moved in with him (no pets or such with her). Having cough with now productive sputum too.), Waxing and waning Associated symptoms: Sore throat, Productive cough, Dyspnea. No: Fever, Hemoptysis, NVD, Bilateral edema Contributing factors: COPD / asthma. No: Sick contact, Travel, Immunocompromised Worsened by: Activity Recently seen: Not recently seen Review of Systems Constitutional: reports: Myalgias. denies: Fever Nose: denies: Rhinorrhea / runny nose, Congestion Throat: reports: Sore throat Cardiac: denies: Chest pain / pressure, Palpitations Respiratory: reports: Dyspnea, Cough (with some sputum production), Wheezing GI: denies: Abdominal Pain, Vomiting, Diarrhea Musculoskeletal: denies: Extremity swelling PD PAST MEDICAL HISTORY - Past Medical History Cardiovascular: None Respiratory: Asthma Neuro: None Endocrine/Autoimmune: None GI: None : None HEENT: None Psych: None Musculoskeletal: None Derm: Eczema - Past Surgical History Past Surgical History: No - Present Medications Home Medications: Ambulatory Orders Medication Instructions Recorded Confirmed Albuterol Sulf [Ventolin Hfa 1 - 2 puffs INH Q4HR PRN #1 inhaler 12/11/20 Inhaler] Amoxicillin 500 mg PO TID #21 cap 12/11/20 Benzonatate [Tessalon] 100 mg PO TID PRN #20 cap 12/11/20 dexAMETHasone [Decadron] 4 mg PO DAILY #7 tab 12/11/20 - Allergies Allergies/Adverse Reactions: Allergies Allergy/AdvReac Type Severity Reaction Status Date / Time No Known Drug Allergies Allergy Verified 12/11/20 10:26 - Social History Does the pt smoke?: Yes Smoking Status: Current every day smoker Does the pt drink ETOH?: Yes Does the pt have substance abuse?: Yes - Immunizations Immunizations are current?: Yes - POLST Patient has POLST: No PD ED PE NORMAL - Vitals Vital signs reviewed: Yes - General General: Alert and oriented X 3, Well developed/nourished - HEENT HEENT: Ears normal, Pharynx benign - Neck Neck: Supple, no meningeal sign, No adenopathy - Cardiac Cardiac: RRR, No murmur - Respiratory Respiratory: No: Clear bilaterally (no coarse sounds. has some end exp wheezing. ) - Abdomen Abdomen: Soft, Non tender - Derm Derm: Normal color, Warm and dry - Extremities Extremities: Normal ROM s pain, No edema, No calf tenderness / cord - Neuro Neuro: Alert and oriented X 3, No motor deficit, Normal speech Results - Vitals Vitals: Vital Signs - 24 hr 12/11/20 12/11/20 12/11/20 10:20 11:22 11:45 Temperature 35.9 C L Heart Rate 73 78 67 Respiratory 14 18 18 Rate Blood Pressure 158/84 H 154/86 H O2 Saturation 99 98 12/11/20 11:54 Temperature 36.2 C L Heart Rate 62 Respiratory 16 Rate Blood Pressure 134/94 H O2 Saturation 99 Oxygen O2 Source Room air - Rads (name of study) chest xray Radiology: Prelim report reviewed (no infiltrates), See rad report PD MEDICAL DECISION MAKING - ED course Complexity details: reviewed results, considered differential (seems URI/bronchitis with exac asthma. literature suggests abx along with asthma therapy may be best. ), d/w patient Departure - Departure Disposition: 01 Home, Self Care Clinical Impression: Acute asthma exacerbation Qualifiers: Asthma severity: mild Asthma persistence: intermittent Qualified Code(s): J45.21 - Mild intermittent asthma with (acute) exacerbation Upper respiratory infection Qualifiers: URI type: unspecified URI Qualified Code(s): J06.9 - Acute upper respiratory infection, unspecified Condition: Stable Record reviewed to determine appropriate education?: Yes Instructions: ED Reactive Airway Disease Follow-Up: [facility] [Provider Group] [facility] [Provider Group] Prescriptions: Albuterol Sulf [Ventolin Hfa Inhaler] 1 - 2 puffs INH Q4HR PRN #1 inhaler PRN Reason: Shortness Of Air/Wheezing Amoxicillin 500 mg PO TID #21 cap dexAMETHasone [Decadron] 4 mg PO DAILY #7 tab Benzonatate [Tessalon] 100 mg PO TID PRN #20 cap PRN Reason: Cough Comments: Your chest x-ray is clear without any signs of pneumonia. Your Covid test should result in the next 1 or 2 days. We typically call with positives. You can also find the result through the patient portal. It does sound like a flareup of your prior asthma and most likely relates to either environmental irritants or potentially a bronchial infection. We will treat this with the albuterol inhaler along with weeks worth of steroid and antibiotic and medication for cough. Follow-up if not improved well over the next several days to week. I provided a couple of local clinic numbers in [place] for follow-up. Recheck if worsening symptoms overall. Discharge Date/Time: 12/11/20 11:59
[2020-12-11] MEDS ORDERED: BENZONATATE 100 MG CAPSULE PO STA (11:06)
[2020-12-11] MEDS ORDERED: DEXAMETHASONE 10 MG/ML VIAL PO STA (11:06)
[2020-12-11] MEDS ORDERED: ALBUTEROL 1 PUFF INH STA (11:06)
[2020-12-11] MEDS ORDERED: CHERRY SYRUP 10 ML UDC PO ONE (11:06)
--- NOTE | 2020-12-11 11:19 | XRAY Report ---
PROCEDURE: Chest 1 View X-Ray INDICATIONS: chest pain TECHNIQUE: One view of the chest was acquired. COMPARISON: None FINDINGS: Surgical changes and devices: None. Lungs and pleura: No pleural effusions or pneumothorax. Lungs are clear. Mediastinum: Mediastinal contours appear normal. Heart size is normal. Bones and chest wall: No suspicious bony lesions. Overlying soft tissues appear unremarkable. IMPRESSION: Normal chest x-ray Reviewed by: Esvin Keating on 12/11/2020 11:18 AM [facility] Approved by: Esvin Keating on 12/11/2020 11:18 AM [facility] Station ID: [id number]
[2020-12-11 11:56] VITALS: BP 134/94
== END 2020-12-11 11:59 | disposition home or self-care (01) ==
LOC: ED 10:16
DX: J45.21 Mild intermittent asthma with (acute) exacerbation (principal); J06.9 Acute upper respiratory infection, unspecified; F17.200 Nicotine dependence, unspecified, uncomplicated; Z20.822 Contact with and (suspected) exposure to COVID-19
CPT/HCPCS: 71045; 87635; 94640; 94664; 99283; A9270

== ENCOUNTER 2020-12-13 22:03 | Emergency (ER) | payer MEDICAID ==
[2020-12-13 23:14] VITALS: BP 144/83
[2020-12-13] MEDS ORDERED: METOCLOPRAMIDE 10 MG TABLET PO STA (23:35)
[2020-12-13] MEDS ORDERED: PANTOPRAZOLE 40 MG TABLET PO STA (23:35)
[2020-12-13] MEDS ORDERED: LIDOCAINE VISCOUS 2% 15 ML UDC MM STA (23:40)
[2020-12-13] MEDS ORDERED: MAG HYDROX/AL HYDROX/SIMETH 30 ML UDC PO STA (23:40)
--- NOTE | 2020-12-13 23:48 | ED Physician Documentation ---
History of Present Illness - Stated complaint Stated Complaint: HICCOUGHS X2 DAYS - Chief complaint Chief Complaint: General - History obtained from History obtained from: Patient - History of Present Illness Timing: How many days ago (2) - Additonal information Additional information: 40 y/o male presented to the ED with cough and congestion with soa and asthma (COVID neg) He was prescribed decadron, amoxcillin, albuterol and benzonoate. He developed hiccups after beginning these medications and he has not been able to control this. He is miserable and continues to hiccup. He also notes he has been having to go to the bathroom to urinate frequently. He does not have a history of diabetes but his father had this right before he two weeks ago. The p atient states that his breathing and cough seem all better now. Review of Systems Constitutional: denies: Fever, Chills Ears: denies: Ear pain Nose: denies: Congestion Throat: denies: Sore throat Cardiac: denies: Chest pain / pressure, Palpitations Respiratory: reports: Dyspnea (improved), Cough (improved) GI: denies: Abdominal Pain, Nausea, Vomiting : denies: Dysuria, Frequency Skin: denies: Rash Musculoskeletal: denies: Neck pain, Back pain, Extremity pain Neurologic: denies: Generalized weakness, Focal weakness, Numbness PD PAST MEDICAL HISTORY - Past Medical History Past Medical History: Yes Cardiovascular: None Respiratory: Asthma Neuro: None Endocrine/Autoimmune: None GI: None : None HEENT: None Psych: None Musculoskeletal: None Derm: Eczema - Past Surgical History Past Surgical History: No - Present Medications Home Medications: Ambulatory Orders Medication Instructions Recorded Confirmed Albuterol Sulf [Ventolin Hfa 1 - 2 puffs INH Q4HR PRN #1 inhaler 12/11/20 12/13/20 Inhaler] Amoxicillin 500 mg PO TID #21 cap 12/11/20 12/13/20 Benzonatate [Tessalon] 100 mg PO TID PRN #20 cap 12/11/20 12/13/20 dexAMETHasone [Decadron] 4 mg PO DAILY #7 tab 12/11/20 12/13/20 - Allergies Allergies/Adverse Reactions: Allergies Allergy/AdvReac Type Severity Reaction Status Date / Time No Known Drug Allergies Allergy Verified 12/13/20 22:22 - Social History Does the pt smoke?: Yes Smoking Status: Current every day smoker Does the pt drink ETOH?: Yes Does the pt have substance abuse?: Yes - Immunizations Immunizations are current?: Yes - POLST Patient has POLST: No PD ED PE NORMAL - Vitals Vital signs reviewed: Yes - General General: Alert and oriented X 3, Well developed/nourished, Other (40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 .) - HEENT HEENT: Atraumatic, PERRL, EOMI - Neck Neck: Supple, no meningeal sign, No bony TTP - Cardiac Cardiac: RRR, No murmur - Respiratory Respiratory: No respiratory distress, Clear bilaterally - Abdomen Abdomen: Soft, Non tender - Back Back: No CVA TTP, No spinal TTP - Derm Derm: Normal color, Warm and dry, No rash - Extremities Extremities: No deformity, No edema - Neuro Neuro: Alert and oriented X 3, operations asst 2-12 intact, No motor deficit, No sensory deficit, Normal speech Eye Opening: Spontaneous Motor: Obeys Commands Verbal: Oriented GCS Score: 15 - Psych Psych: Normal mood, Normal affect Results - Vitals Vitals: Vital Signs - 24 hr 12/13/20 12/13/20 12/13/20 22:18 22:46 23:13 Temperature 35.1 C L Heart Rate 82 81 Respiratory 17 16 16 Rate Blood Pressure 180/85 H 144/83 H O2 Saturation 99 99 Oxygen O2 Source Room air PD MEDICAL DECISION MAKING - ED course Complexity details: considered differential, d/w patient ED course: 40-year-old male with 2 days of hiccups after starting medications for bronchitis appears miserable when he arrives to the emergency department. He is administered metoclopramide and Protonix and in addition he is administered viscous lidocaine and Mylanta. After taking the viscous lidocaine and Mylanta the. Patient had sudden and abrupt cessation of his hiccups. The patient does have a blood sugar of 160 and he has a history of diuresis associated with beginning these medications I suspect this is due to the dexamethasone. I have asked patient to stop the dexamethasone as I suspect this may also have ir ritated his intestine. He will continue on a proton pump inhibitor and take his other medications as needed. He really feels that his symptoms he came in for 2 days ago are mostly resolved. Departure - Departure Disposition: 01 Home, Self Care Clinical Impression: Intractable hiccoughs Condition: Stable Instructions: ED Hiccups Follow-Up: [facility] [Provider Group] Comments: Today it appears your hiccups have responded to treatment of acid reduction in your stomach. The recommendation is to take some Nexium on a daily basis for at least 2 weeks. I would also recommend discontinuing the dexamethasone as it appears there are side effects that could do more harm. Otherwise continue your other medications for treatment.
== END 2020-12-14 00:05 | disposition home or self-care (01) ==
LOC: ED 22:03
DX: R06.6 Hiccough (principal); F17.200 Nicotine dependence, unspecified, uncomplicated
CPT/HCPCS: 99282; 99283; A9270

== ENCOUNTER 2020-12-14 10:50 | Emergency (ER) | payer MEDICAID ==
[2020-12-14 11:03] VITALS: BP 146/95
--- NOTE | 2020-12-14 12:45 | ED Physician Documentation ---
History of Present Illness - Stated complaint Stated Complaint: STOMACH PX - Chief complaint Chief Complaint: General - History obtained from History obtained from: Patient - Additonal information Additional information: 40yM just seen here for hiccups and gastric pain p/w request for viscous lidocaine script. patient is asymptomatic at present. Review of Systems GI: reports: Abdominal Pain PD PAST MEDICAL HISTORY - Past Medical History Cardiovascular: None Respiratory: Asthma Neuro: None Endocrine/Autoimmune: None GI: None : None HEENT: None Psych: None Musculoskeletal: None Derm: Eczema - Past Surgical History Past Surgical History: No - Present Medications Home Medications: Ambulatory Orders Medication Instructions Recorded Confirmed Albuterol Sulf [Ventolin Hfa 1 - 2 puffs INH Q4HR PRN #1 inhaler 12/11/20 12/14/20 Inhaler] Amoxicillin 500 mg PO TID #21 cap 12/11/20 12/13/20 Benzonatate [Tessalon] 100 mg PO TID PRN #20 cap 12/11/20 12/14/20 Lidocaine Viscous 2% [Xylocaine 5 ml MM QDAC PRN #1 bottle 12/14/20 Viscous 2%] - Allergies Allergies/Adverse Reactions: Allergies Allergy/AdvReac Type Severity Reaction Status Date / Time dexamethasone Allergy Nausea Verified 12/14/20 10:58 - Social History Does the pt smoke?: Yes Smoking Status: Current every day smoker Does the pt drink ETOH?: Yes Does the pt have substance abuse?: Yes - Immunizations Immunizations are current?: Yes - POLST Patient has POLST: No PD ED PE NORMAL - Vitals Vital signs reviewed: Yes - General General: Alert and oriented X 3, No acute distress, Well developed/nourished - HEENT HEENT: Atraumatic, PERRL, EOMI - Neck Neck: Supple, no meningeal sign - Cardiac Cardiac: RRR - Respiratory Respiratory: No respiratory distress, Clear bilaterally - Abdomen Abdomen: Non tender, Non distended, Other (discomfort in epigastrium to p alpation) - Male Male : Deferred - Rectal Rectal: Deferred - Derm Derm: Normal color - Neuro Neuro: Alert and oriented X 3 - Psych Psych: Normal mood, Normal affect Results - Vitals Vitals: Vital Signs - 24 hr 12/14/20 11:00 Temperature 36.9 C Heart Rate 74 Respiratory 19 Rate Blood Pressure 146/95 H O2 Saturation 100 Oxygen O2 Source Room air PD MEDICAL DECISION MAKING - ED course ED course: 40yM presents requesting viscous lidocaine script. He has an appointment with his new pmd Dr. Leigh 12/22. strict return precautions given. education given about mild diet that is reflux-friendly. Departure - Departure Disposition: 01 Home, Self Care Clinical Impression: Gastric pain Condition: Good Instructions: ED GERD Prescriptions: Lidocaine Viscous 2% [Xylocaine Viscous 2%] 5 ml MM QDAC PRN #1 bottle PRN Reason: Abdominal Pain Comments: You were seen in the emergency department for stomach pain. As we discussed, use the viscous lidocaine judiciously as needed for pain. Talk to your pharmacist about over the counter options for gastric reflux. Eat small meals frequently and try to keep her stomach slightly full at all times. Eat mild non-processed foods. Return to the emergency department for any new or worsening symptoms or other concerns. Follow-up with your primary doctor, Dr. Morales on December 22. Discharge Date/Time: 12/14/20 12:54
== END 2020-12-14 12:54 | disposition home or self-care (01) ==
LOC: ED 10:50
DX: R10.9 Unspecified abdominal pain (principal); F17.200 Nicotine dependence, unspecified, uncomplicated
CPT/HCPCS: 99282; 99283

== ENCOUNTER 2021-02-20 07:00 | Outpatient (CLI) | payer MEDICAID ==
--- NOTE | 2021-02-20 14:44 | XRAY Report ---
PROCEDURE: Wrist 4 View RT INDICATIONS: R WRIST PX TECHNIQUE: 4 views of the wrist were acquired. COMPARISON: None FINDINGS: Bones: No fractures or dislocations. No suspicious bony lesions. Scaphoid view: Negative Soft tissues: No suspicious soft tissue calcifications. IMPRESSION: No acute fracture. No osseous lesion. If symptoms and/or clinical suspicion for pathology continue, f urther assessment with repeat plain films, or advanced imaging (e.g., CT, MRI, or bone scan) is recom mended for further assessment. Reviewed by: Alon Rdz MD on 02/20/2021 2:43 PM PDT Approved by: Alon dRz MD on 02/20/2021 2:43 PM PDT Station ID: [id number]
== END 2021-02-20 23:59 | disposition home or self-care (01) ==
LOC: DI.N 07:00
PROVIDERS: ATTEND Nurse Practitioner
DX: M25.531 Pain in right wrist (principal); J45.909 Unspecified asthma, uncomplicated; B35.3 Tinea pedis; K21.9 Gastro-esophageal reflux disease without esophagitis; R73.9 Hyperglycemia, unspecified; Z79.899 Other long term (current) drug therapy
CPT/HCPCS: 36415; 80061; 83036; 83721; 84443; 85025

== ENCOUNTER 2021-02-20 08:00 | Outpatient (CLI) | payer MEDICAID ==
[2021-02-20 17:48] LABS: BASOPHILS % (AUTO) 0.5 %; EOSINOPHILS # (AUTO) 0.1 10^3/uL (0.0-0.7); EOSINOPHILS % (AUTO) 1.2 %; HCT - HEMATOCRIT 39.3 % (42.0-52.0); HGB - HEMOGLOBIN 12.2 g/dL (14.0-18.0); LYMPHOCYTES # (AUTO) 2.1 10^3/uL (1.5-3.5); LYMPHOCYTES % (AUTO) 26.5 %; MEAN CORPUSCULAR HEMOGLOBIN 29.2 pg (27.0-31.0); MEAN PLATELET VOLUME 10.4 fL (7.4-11.4); MONOCYTES # (AUTO) 0.6 10^3/uL (0.0-1.0); MONOCYTES % (AUTO) 7.5 %; NEUTROPHILS # (AUTO) 5.1 10^3/uL (1.5-6.6); NEUTROPHILS % (AUTO) 63.1 %; PLT - PLATELET COUNT 333 10^3/uL (130-450); RED BLOOD COUNT 4.18 10^6/uL (4.70-6.10); RED CELL DISTRIBUTION WIDTH 12.2 % (12.0-15.0); WHITE BLOOD COUNT 8.1 x10^3/uL (4.8-10.8)
[2021-02-20 18:01] LABS: CHOL/HDL RATIO 4.8 (<5.0); CHOLESTEROL 224 mg/dL; HDL CHOLESTEROL 47 mg/dL; LDL CHOLESTEROL,CALCULATED 146 mg/dL; LDL/HDL RATIO 3.1 (<3.6); TRIGLYCERIDES 154 mg/dL; VLDL CHOLESTEROL 31 mg/dL
[2021-02-20 18:14] LABS: THYROID STIMULATING HORMONE 1.26 uIU/mL (0.34-5.60)
[2021-02-20 20:34] LABS: ESTIMATED AVERAGE GLUCOSE 97 mg/dL (70-100)
== END 2021-02-20 23:59 | disposition home or self-care (01) ==
LOC: LAB.N 08:00
PROVIDERS: ATTEND Physician Assistant
DX: J45.909 Unspecified asthma, uncomplicated (principal); Z79.899 Other long term (current) drug therapy; B35.3 Tinea pedis; K21.9 Gastro-esophageal reflux disease without esophagitis; R73.9 Hyperglycemia, unspecified
CPT/HCPCS: 36415; 80061; 83036; 83721; 84443; 85025

== ENCOUNTER 2021-02-27 17:39 | Outpatient (CLI) | payer MEDICAID ==
[2021-02-27 17:56] LABS: BASOPHILS % (AUTO) 0.5 %; EOSINOPHILS # (AUTO) 0.1 10^3/uL (0.0-0.7); EOSINOPHILS % (AUTO) 0.9 %; LYMPHOCYTES # (AUTO) 3.6 10^3/uL (1.5-3.5); LYMPHOCYTES % (AUTO) 40.5 %; MEAN CORPUSCULAR HEMOGLOBIN 29.7 pg (27.0-31.0); MEAN CORPUSCULAR HGB CONC 32.4 g/dL (32.0-36.0); MEAN CORPUSCULAR VOLUME 91.6 fL (80.0-94.0); MEAN PLATELET VOLUME 8.4 fL (7.4-11.4); MONOCYTES # (AUTO) 0.6 10^3/uL (0.0-1.0); MONOCYTES % (AUTO) 6.8 %; NEUTROPHILS # (AUTO) 4.5 10^3/uL (1.5-6.6); NEUTROPHILS % (AUTO) 50.4 %; PLT - PLATELET COUNT 306 10^3/uL (130-450); RED BLOOD COUNT 4.04 10^6/uL (4.70-6.10); RED CELL DISTRIBUTION WIDTH 11.9 % (12.0-15.0); WHITE BLOOD COUNT 8.9 x10^3/uL (4.8-10.8)
[2021-02-27 18:22] LABS: % IRON SATURATION 22 % (20-50); IRON 88 ug/dL (45-182); TOTAL IRON BINDING CAPACITY 407 ug/dL (250-450); TRANSFERRIN 291 mg/dL (180-329)
[2021-02-27 18:34] LABS: FERRITIN 196.4 ng/mL (23.9-336.2)
[2021-02-27 19:16] LABS: FOLATE > 49.60 ng/mL (5.90 - >24.8)
== END 2021-02-27 17:40 | disposition home or self-care (01) ==
LOC: LAB 17:39
PROVIDERS: ATTEND Physician Assistant
DX: D64.9 Anemia, unspecified (principal)
CPT/HCPCS: 36415; 82607; 82728; 82746; 83540; 84466; 85025

== ENCOUNTER 2022-02-05 20:53 | Emergency (ER) | payer MEDICAID ==
[2022-02-05 22:07] LABS: RAPID STREP SCREEN Negative (Negative)
--- NOTE | 2022-02-05 22:17 | ED Physician Documentation ---
PD HPI HEENT - Stated complaint Stated Complaint: SORE THROAT/COUGH/HEADACHE - Chief complaint Chief Complaint: Heent - History obtained from History obtained from: Patient - Additional information Additional information: Patient is a 41-year-old male with no significant past medical history presenting for evaluation of sore throat that has been present for 1 month with dry cough. Patient took up smoking approximately 6 months ago and stopped 1 month ago and noticed two pink areas on his tongue today. He was concerned that they could be cancerous prompting his Presentation to the emergency department. He denies fever, congestion, difficulty breathing, chest pain, abdominal pain.He has no trouble swallowing.He denies injury to the tongue. Review of Systems Constitutional: denies: Fever Nose: denies: Congestion Throat: reports: Sore throat Cardiac: denies: Chest pain / pressure, Palpitations Respiratory: denies: Dyspnea, Cough GI: denies: Abdominal Pain, Vomiting Skin: denies: Rash Musculoskeletal: denies: Back pain Neurologic: denies: Headache PD PAST MEDICAL HISTORY - Past Medical History Past Medical History: Yes Cardiovascular: None Respiratory: Asthma Neuro: None Endocrine/Autoimmune: None GI: None : None HEENT: None Psych: None Musculoskeletal: None Derm: Eczema - Past Surgical History Past Surgical History: No - Present Medications Home Medications: Ambulatory Orders Medication Instructions Recorded Confirmed Albuterol Sulf [Ventolin Hfa 1 - 2 puffs INH Q4HR PRN #1 inhaler 12/11/20 12/14/20 Inhaler] Amoxicillin 500 mg PO TID #21 cap 12/11/20 12/13/20 Benzonatate [Tessalon] 100 mg PO TID PRN #20 cap 12/11/20 12/14/20 Lidocaine Viscous 2% [Xylocaine 5 ml MM QDAC PRN #1 bottle 12/14/20 Viscous 2%] - Allergies Allergies/Adverse Reactions: Allergies Allergy/AdvReac Type Severity Reaction Status Date / Time dexamethasone Allergy Nausea Verified 02/05/22 22:21 - Social History Does the pt smoke?: Yes Smoking Status: Current every day smoker Does the pt drink ETOH?: Yes Does the pt have substance abuse?: Yes - Immunizations Immunizations are current?: Yes - POLST Patient has POLST: No PD ED PE NORMAL - General General: Alert and oriented X 3, No acute distress, Well developed/nourished - HEENT HEENT: Atraumatic, PERRL, EOMI, Moist mucous membranes, Other (No significant tonsillar swelling, no signs of peritonsillar abscess, normal speech, no drooli ng or trismus, 2 Flat small patchy pink areas to patient's tongue) - Neck Neck: Supple, no meningeal sign - Cardiac Cardiac: RRR, No murmur, Strong equal pulses - Respiratory Respiratory: No respiratory distress, Clear bilaterally - Derm Derm: Normal color, No rash - Extremities Extremities: No edema - Psych Psych: Normal mood, Normal affect Results - Vitals Vitals: Vital Signs - 24 hr 02/05/22 02/05/22 20:57 22:29 Temperature 36.4 C L Heart Rate 79 67 Respiratory 17 17 Rate Blood Pressure 139/84 H 144/100 H O2 Saturation 98 100 Oxygen O2 Source Room air - Labs Labs: Laboratory Tests 02/05/22 21:53 Group A Strep Rapid Negative PD MEDICAL DECISION MAKING - ED course Complexity details: reviewed results, d/w patient ED course: Patient with complaints of sore throat x1 month. No signs of airway compromise and no abscess seen on exam. Strep test was done and is negative. Patient does have allergy to dexamethasone. Encourage salt water gargle and ibuprofen as needed for any discomfort. Acute patient was also concerned regarding 2 flat pink areas on his tongue.Suspect geographic tongue. Patient was reassured and advised to follow-up with his primary care doctor.He was encouraged to remain smoke-free.He is aware of return precautions. Departure - Departure Disposition: 01 Home, Self Care Clinical Impression: Viral pharyngitis Condition: Stable Instructions: ED Pharyngitis Viral Comments: Stephanie - You were evaluated for a sore throat and a pink areas on your tongue. Your strep test was negative. Your vital signs were stable. There is no signs of a bacterial infection needing antibiotics at this time. Because of your allergy we were not able to give you a dose of steroids to help with inflammation. Instead you can use a salt water gargle or Motrin to help with inflammation.Please also make sure to drink plenty of water and stay hydrated as this may help your symptoms. For the salt water gargle you can dissolve quarter teaspoon of salt in 8 ounce glass of warm water and gargle and spit it out. You can try this twice a day and see if this helps improve your symptoms.Please make sure to have a follow-up appointment with your primary care doctor in the next 1 to 2 weeks. Discharge Date/Time: 02/05/22 22:30
[2022-02-05 22:29] VITALS: BP 144/100
== END 2022-02-05 22:30 | disposition home or self-care (01) ==
LOC: ED 20:53
DX: J02.9 Acute pharyngitis, unspecified (principal); Z87.891 Personal history of nicotine dependence
CPT/HCPCS: 87070; 87430; 99282; 99283

== ENCOUNTER 2022-04-27 10:53 | Emergency (ER) | payer MEDICAID ==
--- NOTE | 2022-04-27 12:14 | ED Physician Documentation ---
History of Present Illness - Stated complaint Stated Complaint: BACK PAIN/INJ - Chief complaint Chief Complaint: Back Pain - Additonal information Additional information: 41-year-old male presents emergency department for evaluation of acute thoracic and lumbar spine. He reports jumping on a trampoline while holding his 2-year-old daughter 2 days ago. At one point he and his daughter got disconnected during the job he went to grab her and when he landed he felt sharp pain in his mid thoracic spine with radiation down his back. Since then he has had pressure across his mid chest. No dyspnea or shortness of air. 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 9 no fevers, saddle anesthesia loss of bowel or bladder function. Denies any history of diabetes or cancer. No history of spinal instrumentation. He has taken Motrin with mild to moderate relief of pain. Review of Systems Constitutional: denies: Fever, Chills Cardiac: reports: Reviewed and negative Respiratory: reports: Reviewed and negative GI: reports: Reviewed and negative : reports: Reviewed and negative Musculoskeletal: reports: Back pain Neurologic: reports: Reviewed and negative Psychiatric: reports: Depressed PD PAST MEDICAL HISTORY - Past Medical History Cardiovascular: None Respiratory: Asthma Neuro: None Endocrine/Autoimmune: None GI: None : None HEENT: None Psych: None Musculoskeletal: None Derm: Eczema - Past Surgical History Past Surgical History: No - Present Medications Home Medications: Ambulatory Orders Medication Instructions Recorded Confirmed Albuterol Sulf [Ventolin Hfa 1 - 2 puffs INH Q4HR PRN #1 inhaler 12/11/20 12/14/20 Inhaler] Amoxicillin 500 mg PO TID #21 cap 12/11/20 12/13/20 Benzonatate [Tessalon] 100 mg PO TID PRN #20 cap 12/11/20 12/14/20 Lidocaine Viscous 2% [Xylocaine 5 ml MM QDAC PRN #1 bottle 12/14/20 Viscous 2%] - Allergies Allergies/Adverse Reactions: Allergies Allergy/AdvReac Type Severity Reaction Status Date / Time dexamethasone Allergy Nausea Verified 04/27/22 11:04 - Social History Does the pt smoke?: Yes Smoking Status: Current every day smoker Does the pt drink ETOH?: Yes Does the pt have substance abuse?: Yes - Immunizations Immunizations are current?: Yes - POLST Patient has POLST: No PD ED PE NORMAL - General General: Alert and oriented X 3, No acute distress, Well developed/nourished - HEENT HEENT: Atraumatic, Moist mucous membranes - Cardiac Cardiac: RRR, No murmur, No gallop - Respiratory Respiratory: No respiratory distress, Clear bilaterally - Back Back: Other (midline lower thoracic tenderness without crepitus or stepoff. full ROM lumbar and thoracic spine. normal gait) - Derm Derm: Normal color, Warm and dry, No rash - Extremities Extremities: No deformity - Neuro Neuro: Alert and oriented X 3, marketing and outreach coordinator 2-12 intact Eye Opening: Spontaneous Motor: Obeys Commands Verbal: Oriented GCS Score: 15 Results - Vitals Vitals: Vital Signs - 24 hr 04/27/22 10:58 Temperature 36.3 C L Heart Rate 67 Respiratory 16 Rate Blood Pressure 158/68 H O2 Saturation 98 Oxygen O2 Source Room air - Rads (name of study) cxr Radiology: Final report received (Normal chest x-ray) thoracic/lumbar CT Radiology: Final report received (Mild chronic degenerative disc disease L4-S1. No acute abnormalities. Thoracic CT shows minimal chronic degenerative changes but no acute abnormalities) PD MEDICAL DECISION MAKING - ED course Complexity details: reviewed results, re-evaluated patient, considered differential, d/w patient ED course: 41-year-old male presents emergency department for evaluation of midthoracic back pain with radiation to his lower lumbar spine that occurred when jumping on the trampoline with his daughter 2 days ago. No saddle anesthesia or loss of bowel or bladder function. He does have a history of previous injury to the low back that was worked up through labor and industries claim. On exam he has midline thoracic tenderness but no crepitus or step-off/deformi ty. He does have good full range of motion of the lower lumbar and thoracic spine. Normal gait normal motor strength. He did find moderate relief with use of Motrin at home. Imaging of the thoracic and lumbar spine is negative for acute fracture. He is advised continued management with ibuprofen at home close follow-up with PCP. Emergent return precautions and red flags were discussed with patient Departure - Departure Disposition: 01 Home, Self Care Clinical Impression: Thoracic back pain Qualifiers: Chronicity: acute Back pain laterality: midline Qualified Code(s): M54.6 - Pain in thoracic spine Condition: Stable Record reviewed to determine appropriate education?: Yes Comments: You are seen today for pain in your mid back after jumping on the trampoline with your daughter. The x-ray and CTs are negative for any fractures or obvious significant disc herniation. I do recommend that you continue to take the ibuprofen with food 2-3 times a day. Gentle stretching and movement will help you remain limber. In general most back injury such as this will resolve with routine conservative measures over 7 to 10 days. Please have close follow-up with your primary care provider given your history of previous low back pain and back injury. If you develop numbness in your genital area or lose control of your bowel or bladder function then please return to the ER for second evaluation
[2022-04-27] MEDS ORDERED: KETOROLAC 30 MG/ML VIAL IM STA (12:21)
--- NOTE | 2022-04-27 12:55 | XRAY Report ---
PROCEDURE: Chest 1 View X-Ray INDICATIONS: chest pain COMMENTS: Chest pain/ Pt states back pain following jumping on trampolin e PRIORS: 12/11/20 TECHNIQUE: One view of the chest was acquired. COMPARISON: None FINDINGS: Surgical changes and devices: None. Lungs and pleura: No pleural effusions or pneumothorax. Lungs are clear. Mediastinum: Mediastinal contours appear normal. Heart size is normal. Bones and chest wall: No suspicious bony lesions. Overlying soft tissues appear unremarkable. IMPRESSION: Normal chest x-ray Reviewed by: Esvin Keating on 04/27/2022 11:54 AM PAT Approved by: Esvin Keating on 04/27/2022 11:54 AM PAT Station ID: [id number]
--- NOTE | 2022-04-27 12:57 | CT Report ---
PROCEDURE: LUMBAR SPINE WO INDICATIONS: pain in low back after trampoline injury TECHNIQUE: Noncontrast 3 mm thick sections acquired from the T12 level to the sacrum. Sagittal and coronal refo rmats were constructed. For radiation dose reduction, the following was used: automated exposure co ntrol, adjustment of mA and/or kV according to patient size. COMPARISON: None. FINDINGS: Image quality: Excellent. Bones: There is normal bony alignment. No acute vertebral body compression fractures. No suspiciou s lytic or blastic bony lesions. Central spinal caliber is of normal overall caliber. No pars defec ts. T12-L1: Normal in appearance. L1-L2: Normal in appearance. L2-L3: Normal in appearance. L3-L4: Normal in appearance. L4-L5: Mild diffuse disc bulge and disc osteophytes cause mild bilateral foraminal stenosis. No porfirio tral canal stenosis. L5-S1: Mild diffuse disc bulge and disc osteophytes cause mild bilateral foraminal stenosis. The ce ntral canal is patent. Soft tissues: No retroperitoneal masses or hematomas. Visualized aorta is normal in caliber. IMPRESSION: Mild chronic degenerative disc disease at L4-5 and L5-S1. No acute abnormality. Reviewed by: Esvin Keating on 04/27/2022 11:56 AM PAT Approved by: Esvin Keating on 04/27/2022 11:56 AM PAT Station ID: [id number]
--- NOTE | 2022-04-27 13:00 | CT Report ---
PROCEDURE: THORACIC SPINE WO INDICATIONS: sharp thoracic pain after trampolie injury TECHNIQUE: Noncontrast 3 mm thick sections acquired through the region of interest in the thoracic spine. Sagit daniela and coronal reformats were then constructed. For radiation dose reduction, the following was used : automated exposure control, adjustment of mA and/or kV according to patient size. COMPARISON: None. FINDINGS: Image quality: Excellent. Bones: There is normal overall bony alignment. No acute vertebral body compression fractures. No s uspicious sclerotic or lytic bony lesions. Central spinal canal is of normal overall caliber. Minim al diffuse degenerative changes. Soft tissues: No paravertebral masses or hematomas. Visualized posteromedial lungs appear clear. IMPRESSION: Minimal chronic degenerative changes. No acute abnormality. Reviewed by: Esvin Keating on 04/27/2022 11:58 AM PAT Approved by: Esvin Keating on 04/27/2022 11:58 AM PAT Station ID: [id number]
[2022-04-27 13:47] VITALS: BP 140/70
== END 2022-04-27 13:46 | disposition home or self-care (01) ==
LOC: ED 10:53
DX: M54.6 Pain in thoracic spine (principal); M54.50 Low back pain, unspecified; R07.89 Other chest pain; F17.200 Nicotine dependence, unspecified, uncomplicated
CPT/HCPCS: 99282; 99283